=== PATIENT | male | born 1995 ===

== ENCOUNTER 2024-10-27 19:47 | Emergency (ER) | payer BC ==
[2024-10-27 20:28] VITALS: BP 124/69; PULSE 61
[2024-10-27] MEDS: Ketorolac 30 MG/ML SDV IM ONE (21:21)
[2024-10-27 21:53] LABS: APPEARANCE,URINE CLEAR (Clear); BILIRUBIN,URINE NEGATIVE (Negative); COLOR,URINE YELLOW (Yellow); GLUCOSE,URINE NEGATIVE (Negative); KETONES,URINE TRACE (Negative); LEUKOCYTE ESTERASE,URINE NEGATIVE (Negative); NITRITE,URINE NEGATIVE (Negative); OCCULT BLOOD,URINE NEGATIVE (Negative); PROTEIN,URINE 1+ (Negative); UROBILINOGEN,URINE 0.2 (0.2-1.0)
[2024-10-27 22:04] LABS: RBC,URINE 0-5 /hpf (0-5); WBC,URINE 0-5 /hpf (0-5)
[2024-10-27 22:05] LABS: BACTERIA,URINE FEW /hpf (FEW); EPITHELIAL CELLS,URINE 0-5 /hpf (0-5); HYALINE CASTS,URINE 0-5 /lpf (0-5); MUCUS,URINE FEW /hpf (FEW)
== END 2024-10-27 23:30 | disposition home or self-care (01) ==
LOC: JD.ED 19:47
DX: N50.812 Left testicular pain (principal)
CPT/HCPCS: 76870; 76870-26; 81001; 93975; 96372; 99284; J1885

== ENCOUNTER 2024-12-12 07:15 | Day surgery (SDC) | payer BC ==
[~2024-12-12 07:15] MED LIST: Lactated Ringers 1,000 ML IV SCH; Propofol 200 MG/20 ML SDV ONE; Sodium Chloride 0.9% 10 ML Syringe FLUSH PRN; Sodium Chloride 0.9% 10 ML Syringe FLUSH SCH
[2024-12-12] MEDS ORDERED: Sodium Chloride 0.9% 10 ML Syringe FLUSH PRN (07:52)
[2024-12-12] MEDS: Lactated Ringers 1,000 ML IV SCH (08:13)
[2024-12-12] MEDS ORDERED: Propofol 200 MG/20 ML SDV ONE (08:22)
[2024-12-12] MEDS ORDERED: Lidocaine 1% 10 ML MDV ONE (08:23)
[2024-12-12] MEDS ORDERED: Bupivacaine 0.25% 10 ML SDV ONE (08:23)
[2024-12-12] MEDS: Lidocaine 1% 10 ML MDV ONE (08:36)
[2024-12-12] MEDS: Bupivacaine 0.25% 10 ML SDV ONE (08:36)
[2024-12-12] MEDS ORDERED: Sodium Chloride 0.9% 10 ML Syringe FLUSH SCH (09:00)
[2024-12-12 09:51] VITALS: BP 137/60; PULSE 57
== END 2024-12-12 09:45 | disposition home or self-care (01) ==
LOC: JD.SDS 07:15
PROVIDERS: ATTEND Orthopaedic Surgery
DX: G56.13 Other lesions of median nerve, bilateral upper limbs (principal); G56.03 Carpal tunnel syndrome, bilateral upper limbs; J45.909 Unspecified asthma, uncomplicated; Z79.899 Other long term (current) drug therapy
CPT/HCPCS: 01810; J0665; J2003; J2704; J7120